=== PATIENT | male | born 1945 | race Caucasian/White ===

== ENCOUNTER 2017-10-02 13:05 | Day surgery (SDC) | payer OTHER, BC ==
[2017-09-29 13:06] VITALS: BMI 28.8
[2017-10-02 18:53] VITALS: BP 155/79; PULSE 64; TEMP 97.5
== END 2017-10-02 18:50 | disposition home or self-care (01) ==
LOC: JASU-SURG 13:05
PROVIDERS: ATTEND Surgery
PROC: 0WWG4JZ Revision of Synthetic Substitute in Peritoneal Cavity, Percutaneous Endoscopic Approach (ICD-10-PCS; principal; 2017-10-02)
DX: T85.611A Breakdown (mechanical) of intraperitoneal dialysis catheter, initial encounter (principal); I12.0 Hypertensive chronic kidney disease with stage 5 chronic kidney disease or end stage renal disease; N18.6 End stage renal disease; Z99.2 Dependence on renal dialysis; I48.91 Unspecified atrial fibrillation
CPT/HCPCS: 94760